=== PATIENT | male | born 1975 | race Caucasian/White ===

== ENCOUNTER 2017-09-23 14:17 | Emergency (ER) | payer OTHER ==
--- NOTE | 2017-09-23 14:22 | ED Physician Documentation ---
PD HPI LOWER EXT INJURY - Stated complaint Stated Complaint: RT ANKLE WOUND - History obtained from History obtained from: Patient - History of Present Illness PD HPI LOW EXT INJURY LOCATION: Right, Lower leg, Ankle Type of injury: Other (he had gotten several bug bites about 5 days ago and they were itchy so scratched at them. All the others have healed but one at the right ankle with small ulceration at surface and now some expanding redness. No drainage.) Where injury occurred: Home Timing - onset: How many days ago (initial bites 5 days ago, but the redness and local swelling at this spot just 2 days.) Timing - details: Gradual onset, Still present Worsened by: No: Moving, Palpating Associated symptoms: Swelling, Discolored (red). No: Weakness, Numbness Similar symptoms before: Has not had sx before Recently seen: Not recently seen Review of Systems Constitutional: denies: Fever, Chills, Myalgias GI: denies: Nausea, Vomiting, Diarrhea Neurologic: denies: Focal weakness, Numbness PD PAST MEDICAL HISTORY - Past Medical History Cardiovascular: None Respiratory: None Neuro: None Endocrine/Autoimmune: None - Present Medications Home Medications: Ambulatory Orders Medication Instructions Recorded Confirmed Cephalexin [Keflex] 500 mg PO TID #15 capsule 09/23/17 Escitalopram [Lexapro] 1 tab PO DAILY 09/23/17 09/23/17 Mupirocin 1 applic TP TID #15 oint...g. 09/23/17 - Allergies Allergies/Adverse Reactions: Allergies Allergy/AdvReac Type Severity Reaction Status Date / Time No Known Drug Allergies Allergy Verified 09/23/17 14:23 PD ED PE NORMAL - Vitals Vital signs reviewed: Yes - General General: Alert and oriented X 3, No acute distress, Well developed/nourished - Derm Derm: Normal color, Warm and dry, Other (right lower leg just above ankle anteriorly with superficial ulceration 1/2 cm, with surrounding redness and mild swelling. No fluctuance. No underlying induration. ) - Extremities Extremities: No calf tenderness / cord - Neuro Neuro: No motor deficit, No sensory deficit Results - Vitals Vitals: Vital Signs - 24 hr 09/23/17 14:20 Temperature 36.4 C L Heart Rate 82 Respiratory 14 Rate Blood Pressure 156/92 H O2 Saturation 96 PD MEDICAL DECISION MAKING - Sepsis Event Vital Signs: Vital Signs - 24 hr 09/23/17 14:20 Temperature 36.4 C L Heart Rate 82 Respiratory 14 Rate Blood Pressure 156/92 H O2 Saturation 96 Departure - Departure Disposition: 01 Home, Self Care Clinical Impression: Cellulitis of lower leg Condition: Stable Record reviewed to determine appropriate education?: Yes Instructions: ED Infec Skin Cellulitis Prescriptions: Cephalexin [Keflex] 500 mg PO TID #15 capsule Mupirocin 1 applic TP TID #15 oint...g. Comments: Cleanse the area 2-3 times a day and apply mupirocin topical antibiotic. Also take cephalexin oral antibiotic 3 times daily for the next 3-5 days until it seems fully cleared. Tylenol if needed for mild pains. Recheck if not all better over the next 5 days and return sooner if significantly worsening pain despite the medicine.
[2017-09-23 14:23] VITALS: BP 156/92
[2017-09-23] MEDS ORDERED: cephALEXin 250 MG CAPSULE PO STA (14:39)
[2017-09-23] MEDS ORDERED: MUPIROCIN 2% OINT 1 GM TOP STA (14:39)
== END 2017-09-23 14:52 | disposition home or self-care (01) ==
LOC: ED 14:17
DX: L03.115 Cellulitis of right lower limb (principal)
CPT/HCPCS: 99283; A9270